=== PATIENT | male | born 1995 | race Two or more races ===

== ENCOUNTER 2022-07-18 15:26 | Emergency (ER) | payer BC, OTHER ==
[~2022-07-18] VITALS: Ht 177.8 cm; Wt 88.7 kg
[2022-07-18] MEDS ORDERED: LIDOCAINE 1% HCL (LOCAL ANESTH.) INJ 20ML MDV ID ONE (16:15)
[2022-07-18] MEDS ORDERED: TETANUS-DIPTH-ACEL PERTUSSIS 0.5ML SYR Tdap IM ONE (17:30)
[2022-07-18] MEDS ORDERED: IBUPROFEN 800 MG TAB PO ONE (17:30)
[2022-07-18] MEDS ORDERED: IBU600T PO (17:33)
[2022-07-18] MEDS ORDERED: MUPI2OIN2 EX (17:33)
[2022-07-18] MEDS ORDERED: CEPH-510 PO (17:33)
[2022-07-18 17:43] VITALS: BP 130/89
== END 2022-07-18 17:51 | disposition home or self-care (01) ==
LOC: ER 15:26
DX: S01.111A Laceration without foreign body of right eyelid and periocular area, initial encounter (principal); W45.8XXA Other foreign body or object entering through skin, initial encounter; Y93.67 Activity, basketball; Y92.89 Other specified places as the place of occurrence of the external cause; Y99.8 Other external cause status
CPT/HCPCS: 12013; 70450; 90471; 90715